=== PATIENT | male | born 1960 | race Two or more races ===

== ENCOUNTER 2019-01-04 11:52 | Day surgery (SDC) | payer BC ==
[~2019-01-04] VITALS: Ht 172.7 cm; Wt 75.6 kg
[2019-01-04 13:12] VITALS: Ht 172.7 cm; Wt 75.6 kg
[2019-01-04 13:41] VITALS: BP 108/70; PULSE 66; RESP 20
--- NOTE | 2019-01-04 14:05 | PREAC ---
Date/Time of Note Date/Time of Note DATE: 01/04/19 TIME: 14:03 Anesthesia Eval and Record Evaluation Time Pre-Procedure Interview DATE: 01/04/19 TIME: 14:03 Age 58 Sex male NPO: 8 hrs Preoperative diagnosis Colon screening Planned procedure Colonoscopy Past Medical History Past Medical History: None Surgery & Anesthesia Issues No known issue Meds Anticoagulation: No Beta Farhad within 24 hr: No Reason Beta Farhad not given: Pt. not on B-Farhad Reported Medications [none] No Conflict Check 01/04/19 Meds reviewed: Yes Allergies Coded Allergies: No Known Allergy (Unverified , 01/04/19) Allergies Reviewed: Yes Labs/Studies Labs Reviewed: Reviewed by anesthesiologist test: N/A Pre-procedure Exam Last vitals Vital Signs Date Temp Pulse Resp B/P (MAP) Pulse Ox O2 O2 Flow FiO2 Time Delivery Rate 01/04/19 98.1 66 20 108/70 96 Room Air 13:41 (83) Airway: Adequate mouth opening Mallampati: Mallampati I Teeth: Normal Lung: Normal Heart: Normal ASA Physical Status ASA physical status: 1 Emergency: None Planned Anesthetic General/MAC: MAC Planned Pain Management Parenteral pain med Pre-operative Attestations Prior to commencing anesthesia and surgery, the patient was re-evaluated, there was verification of: *The patient's identity *The results of appropriate recent lab work and preoperative vital signs *The above evaluation not changing prior to induction *Anesthetic plan, risk benefits, alternative and complications discussed with patient/family; questions answered; patient/family understands, accepts and wishes to proceed. JUAN REMY MD Jan 04, 2019 14:05
[2019-01-04] MEDS ORDERED: PROPOFOL 20 ML ONE (14:06)
--- NOTE | 2019-01-04 15:16 | PAC ---
Date/Time of Note Date/Time of Note DATE: 01/04/19 TIME: 15:10 Post-Anesthesia Notes Post-Anesthesia Note Last documented vital signs Vital Signs Date Temp Pulse Resp B/P (MAP) Pulse Ox O2 O2 Flow FiO2 Time Delivery Rate 01/04/19 98.1 66 20 108/70 96 Room Air 13:41 (83) Activity: WNL Respiratory function: WNL Cardiovascular function: WNL Mental status: Baseline Pain reasonably controlled: Yes Hydration appropriate: Yes Nausea/Vomiting absent: Yes Comments BP: 103/76, HR: 63, RR: 16, SpO2: 95, BT: 98.4 JUAN REMY MD Jan 04, 2019 15:16
[2019-01-04 15:30] VITALS: BP 103/76; RESP 20
== END 2019-01-04 15:56 | disposition home or self-care (01) ==
LOC: GIL 11:52
PROVIDERS: ATTEND Internal Medicine Gastroenterology
DX: Z12.11 Encounter for screening for malignant neoplasm of colon (principal); D12.4 Benign neoplasm of descending colon; D12.5 Benign neoplasm of sigmoid colon; K64.8 Other hemorrhoids
CPT/HCPCS: 45380; Z7610; 88305